=== PATIENT | female | born 1990 | race Caucasian/White ===

== ENCOUNTER 2016-02-24 13:26 | Emergency (ER) | payer OTHER ==
[~2016-02-24] VITALS: Ht 152.4 cm; Wt 64.5 kg
[~2016-02-24 13:26] MED LIST: ALBU8.5H3 INH; BECL8.7A INH; BUTA1CAP39 PO; CETI10CA PO; GUAI473L22 PO; IBUP-1542 PO; ZOF8 PO
[2016-02-24 13:31] VITALS: Ht 152.4 cm; Wt 64.5 kg
[2016-02-24 14:17] LABS: URINE BLOOD (Dip) POC 2+ (NEGATIVE)
[2016-02-24] MEDS ORDERED: CEPH-443 PO (14:40)
[2016-02-24] MEDS ORDERED: PHEN-538 PO (14:40)
--- NOTE | 2016-02-24 14:44 | ERD ---
ER Documentation Chief Complaint Date/Time DATE: 02/24/16 TIME: 14:43 Chief Complaint painful urination started yesterday afternoon HPI This 25-year-old female presents with dysuria and mild suprapubic pain since yesterday. She denies any fevers, or vomiting. She has mild nausea. Denies any flank pain. She has a history of UTI and it feels similar. She has not been treated recently for UTI. Denies vaginal discharge or right or left pelvic pain. ROS All systems reviewed and are negative except as per history of present illness. Medications Home Meds Active Scripts Phenazopyridine Hcl* (Pyridium*) 200 Mg Tab, 200 MG PO TID Y for URINARY PAIN, # 6 TAB Prov:NATE VAZQUEZ MD 02/24/16 Cephalexin* (Keflex*) 500 Mg Capsule, 500 MG PO QID for 5 Days, CAP Prov:NATE VAZQUEZ MD 02/24/16 Ibuprofen* (Motrin*) 600 Mg Tab, 600 MG PO Q6H Y for PAIN AND OR ELEVATED TEMP, #30 TAB Prov:SUSANA DEJESUS NP 11/10/15 Cetirizine Hcl* (Zyrtec*) 10 Mg Capsule, 10 MG PO DAILY, #30 TAB.CHEW Prov:SUSANA DEJESUS NP 11/10/15 Guaifenesin-Codeine Phosphate* (Guaifenesin* AC Cough Syrup) 473 Ml Liquid, 5 ML PO Q4H Y for COUGH, #60 ML Prov:SUSANA DEJESUS NP 11/10/15 Albuterol Sulfate* (Proair HFA*) 8.5 Gm Hfa.aer.ad, 2 PUFF INH Q4H Y for WHEEZING AND SOB, #1 INHALER Prov:SUSANA DEJESUS NP 11/10/15 Beclomethasone Dip* (Qvar 40*) 7.3 Gm Inha, 2 PUFF INH BID, #1 INHALER Prov:SUSANA DEJESUS NP 11/10/15 Ondansetron Hcl* (Zofran* ODT) 8 mg -ODT Tab.disper, 8 MG PO Q6 Y for NAUSEA AND /OR VOMITING, #10 TAB Prov:EMMANUEL COLIN MD 09/08/14 Yaukodofuptht-Nfoetcfqop-Qkqoyvmd-Codeine* (Fioricet w/ Codeine*) [id number]- 30MG Capsule, 1 CAP PO Q6H Y for PAIN LEVEL 1-5, #10 CAP Prov:EMMANUEL COLIN MD 09/08/14 Allergies Allergies: Coded Allergies: No Known Allergy (Unverified , 10/10/13) PMhx/Soc History of Surgery: No Anesthesia Reaction: No Hx Neurological Disorder: No Hx Respiratory Disorders: Yes (asthma) Hx Cardiac Disorders: No Hx Psychiatric Problems: No Hx Miscellaneous Medical Probl: Yes (ovarian cyst) Hx Alcohol Use: No Hx Substance Use: Yes (marijuana) Hx Tobacco Use: Yes Smoking Status: Current every day smoker Physical Exam Vitals Vital Signs Date Time Temp Pulse Resp B/P Pulse Ox O2 Delivery O2 Flow Rate FiO2 02/24/16 13:31 98.3 74 19 116/56 96 Physical Exam Const: [] Head: Atraumatic Eyes: Normal Conjunctiva ENT: Normal External Ears, Nose and Mouth. Neck: Full range of motion..~ No meningismus. Resp: Clear to auscultation bilaterally Cardio: Regular rate and rhythm, no murmurs Abd: Soft, non tender, non distended. Normal bowel sounds Skin: No petechiae or rashes Back: No midline or flank tenderness Ext: No cyanosis, or edema Neur: Awake and alert Psych: Normal Mood and Affect Results 24 hrs Laboratory Tests Test 02/24/16 14:17 Bedside Urine Blood 2+ Bedside Urine Glucose (UA) Negative Bedside Urine Ketones (LAB) Negative Bedside Urine Leukocyte Esterase (L Trace Bedside Urine Nitrite (LAB) Negative Bedside Urine Protein (LAB) 1+ Bedside Urine pH (LAB) 8.5 Current Medications Medications (Trade) Dose Ordered Sig/Meghna Route PRN Reason Start Time Stop Time Status Last Admin Dose Admin Cephalexin (Keflex) 500 mg ONCE ONCE PO 02/24/16 15:00 02/24/16 15:01 Phenazopyridine HCl (Pyridium) 200 mg ONCE ONCE PO 02/24/16 15:00 02/24/16 15:01 Procedures/MDM Urine shows positive leukocytes and blood. HCG is negative. Patient has signs and symptoms of acute cystitis without signs or symptoms to suggest sepsis, pyelonephritis, PID, acute abdomen. She was given Keflex 500 mg here in the ED as well as Pyridium and will be treated with Keflex, Pyridium and instructions for clear fluids at home. The patient was stable with no new complaints during the ER course. Clinically, there is no current evidence to suggest meningitis, sepsis, acute abdomen, pneumonia, acute coronary syndrome, pulmonary embolism, or any other emergent condition appearing to require further evaluation or hospitalization. The patient should certainly return for any new or worsening symptoms per the aftercare instructions. They should otherwise follow-up with her primary care doctor for reevaluation this week. Departure Diagnosis: Primary Impression: UTI (urinary tract infection) Urinary tract infection type: acute cystitis Hematuria presence: without hematuria Qualified Code: N30.00 - Acute cystitis without hematuria Condition: Stable Patient Instructions: Understanding Urinary Tract Infections (UTIs) Additional Instructions: Urine shows infection. Recheck for new or worsening symptoms or primary care doctor. Drink plenty of fluids at home. NATE VAZQUEZ MD Feb 24, 2016 14:44
[2016-02-24] MEDS ORDERED: PHENAZOPYRIDINE 100 MG TAB PO ONE (15:00)
[2016-02-24] MEDS ORDERED: CEPHALEXIN 500 MG CAP PO ONE (15:00)
== END 2016-02-24 15:01 | disposition home or self-care (01) ==
LOC: FTE 13:26
DX: N30.00 Acute cystitis without hematuria (principal); J45.909 Unspecified asthma, uncomplicated; F17.210 Nicotine dependence, cigarettes, uncomplicated
CPT/HCPCS: 81003; Z7502; Z7610; 99283

== ENCOUNTER 2016-02-29 15:45 | Emergency (ER) | payer SELFPAY ==
[~2016-02-29] VITALS: Ht 152.4 cm; Wt 66.5 kg
[~2016-02-29 15:45] MED LIST changes: +CEPH-443 PO; +PHEN-538 PO
[2016-02-29 15:59] VITALS: Ht 152.4 cm; Wt 66.5 kg
== END 2016-02-29 17:23 | disposition left against medical advice (07) ==
LOC: FTE 15:45
DX: Z53.21 Procedure and treatment not carried out due to patient leaving prior to being seen by health care provider (principal)

== ENCOUNTER 2016-06-16 08:41 | Emergency (ER) | payer OTHER ==
[~2016-06-16] VITALS: Ht 157.5 cm; Wt 78.0 kg
[2016-06-16 08:45] VITALS: Ht 157.5 cm; Wt 78.0 kg
[2016-06-16] MEDS ORDERED: ONDANSETRON (ODT) 4 MG TAB ODT STA (09:35)
[2016-06-16] MEDS ORDERED: FAMOTIDINE 20 MG TAB PO STA (09:35)
[2016-06-16] MEDS ORDERED: LIDOCAINE/MYLANTA 40 ML BTL PO STA (09:35)
[2016-06-16] MEDS ORDERED: ONDA4TAB14 PO (09:57)
[2016-06-16] MEDS ORDERED: OMEP20CA16 PO (09:57)
[2016-06-16] MEDS ORDERED: FAMO-18 PO (09:57)
[2016-06-16 10:20] LABS: URINE BLOOD (Dip) POC 2+ (NEGATIVE)
--- NOTE | 2016-06-16 10:20 | ERD ---
ER Documentation Chief Complaint Date/Time DATE: 06/16/16 TIME: 10:17 Chief Complaint ap with nausea x 2-3 days HPI This is a 25-year-old female with history of asthma presenting to the emergency department complaining of epigastric pain since this morning. Patient states that she was at work and she kept having nausea and episodes of regurgitation. She denies any actual vomiting. She denies any diarrhea, urinary symptoms, fever, hematemesis. Patient states that she has not taken any medications for this. She states that she was told that she does have a history of gastritis. Patient states that she is currently on her menstrual period ROS All systems reviewed and are negative except as per history of present illness. Medications Home Meds Active Scripts Famotidine* (Pepcid*) 20 Mg Tablet, 20 MG PO QHS, #20 TAB Prov:JOIE NG PA-C 06/16/16 Omeprazole* (Omeprazole*) 20 Mg Capsule.dr, 20 MG PO DAILY, #10 Prov:JOIE NG PA-C 06/16/16 Ondansetron (Ondansetron Odt) 4 Mg Tab.rapdis, 4 MG PO Q6H Y for NAUSEA AND/OR VOMITING, #14 TAB Prov:JOIE NG PA-C 06/16/16 Phenazopyridine Hcl* (Pyridium*) 200 Mg Tab, 200 MG PO TID Y for URINARY PAIN, # 6 TAB Prov:NATE VAZQUEZ MD 02/24/16 Cephalexin* (Keflex*) 500 Mg Capsule, 500 MG PO QID for 5 Days, CAP Prov:NATE VAZQUEZ MD 02/24/16 Ibuprofen* (Motrin*) 600 Mg Tab, 600 MG PO Q6H Y for PAIN AND OR ELEVATED TEMP, #30 TAB Prov:SUSANA DEJESUS NP 11/10/15 Cetirizine Hcl* (Zyrtec*) 10 Mg Capsule, 10 MG PO DAILY, #30 TAB.CHEW Prov:SUSANA DEJESUS NP 11/10/15 Guaifenesin-Codeine Phosphate* (Guaifenesin* AC Cough Syrup) 473 Ml Liquid, 5 ML PO Q4H Y for COUGH, #60 ML Prov:SUSANA DEJESUS NP 11/10/15 Albuterol Sulfate* (Proair HFA*) 8.5 Gm Hfa.aer.ad, 2 PUFF INH Q4H Y for WHEEZING AND SOB, #1 INHALER Prov:SUSANA DEJESUS NP 11/10/15 Beclomethasone Dip* (Qvar 40*) 7.3 Gm Inha, 2 PUFF INH BID, #1 INHALER Prov:SUSANA DEJESUS NP 11/10/15 Ondansetron Hcl* (Zofran* ODT) 8 mg -ODT Tab.disper, 8 MG PO Q6 Y for NAUSEA AND /OR VOMITING, #10 TAB Prov:EMMANUEL COLIN MD 09/08/14 Mjhliubpiknyo-Sxpzttmufa-Cqjvvcrj-Codeine* (Fioricet w/ Codeine*) [id number]- 30MG Capsule, 1 CAP PO Q6H Y for PAIN LEVEL 1-5, #10 CAP Prov:EMMANUEL COLIN MD 09/08/14 Allergies Allergies: Coded Allergies: No Known Allergy (Unverified , 10/10/13) PMhx/Soc Medical and Surgical Hx: pt denies Medical Hx History of Surgery: No Anesthesia Reaction: No Hx Neurological Disorder: No Hx Respiratory Disorders: Yes (asthma) Hx Cardiac Disorders: No Hx Psychiatric Problems: No Hx Miscellaneous Medical Probl: Yes (ovarian cyst) Hx Alcohol Use: No Hx Substance Use: Yes (marijuana) Hx Tobacco Use: Yes Smoking Status: Current every day smoker Physical Exam Vitals Vital Signs Date Time Temp Pulse Resp B/P Pulse Ox O2 Delivery O2 Flow Rate FiO2 06/16/16 08:45 97.8 60 18 128/53 99 Physical Exam GENERAL: well-developed/well-nourished, in no apparent distress, non-toxic appearing HENT: NC/AT, moist mucous membranes EYES: Conjunctiva normal NECK: Supple, no lymphadenopathy PULM: CTA bilaterally, no rales, rhonchi, or wheezing heard CV: Normal S1S2, RRR, good capillary refill GI: Soft, non-distended, mild tender to palpation epigastric Normal bowel sounds, no masses or organomegaly felt on exam No gross peritonitis, no bruits Negative Rovsing, negative Gómez, negative McBurney's point, Negative CVAT BACK: No masses EXT: No clubbing, cyanosis, or edema NEURO: Alert and Orientated SKIN: Intact, normal turgor PSYCH: Normal mood and mentation Results 24 hrs Laboratory Tests Test 06/16/16 10:22 Bedside Urine pH (LAB) 7.0 Bedside Urine Protein (LAB) Negative Bedside Urine Glucose (UA) Negative Bedside Urine Ketones (LAB) Negative Bedside Urine Blood 2+ Bedside Urine Nitrite (LAB) Negative Bedside Urine Leukocyte Esterase (L Negative Current Medications Medications (Trade) Dose Ordered Sig/Meghna Route PRN Reason Start Time Stop Time Status Last Admin Dose Admin Miscellaneous Medication (Gi Cocktail (2)) 40 ml ONCE STAT PO 06/16/16 09:35 06/16/16 09:37 DC 06/16/16 10:21 Ondansetron HCl (Zofran Odt) 8 mg ONCE STAT ODT 06/16/16 09:35 06/16/16 09:37 DC 06/16/16 10:21 Famotidine (Pepcid) 20 mg ONCE STAT PO 06/16/16 09:35 06/16/16 09:37 DC 06/16/16 10:21 Acetaminophen/ Hydrocodone Bitart ([place] (5/325)) 1 tab ONCE STAT PO 06/16/16 10:36 06/16/16 10:38 DC Procedures/MDM This is a 25-year-old female with a history of asthma and gastritis presenting to the emergency department complaining of epigastric pain with regurgitation since this morning. This is likely acid reflux or gastritis. Other differentials that I have considered are cholelithiasis, pancreatitis, gastroenteritis, versus other acute cardiopulmonary conditions. Patient appears well, she does not seem to be in any distress. She is afebrile and has stable vital signs. In the ED patient was given a GI cocktail, Zofran, and Pepcid. I have reassessed her and she is significant is better. Patient is suitable to follow-up with her primary care physician. A prescription for Zofran, Pepcid and Prilosec was given. I discussed with her to return to the ER for any worsening signs or symptoms. Patient understands and agrees with this plan. Departure Diagnosis: Primary Impression: Epigastric pain Additional Impression: Nausea Condition: Stable Patient Instructions: Treating Gastritis, Understanding Gastritis, Nausea, Gerd (Adult), Gastritis (Adult), Epigastric Pain (Uncertain Cause) Referrals: [facility] YOU HAVE RECEIVED A MEDICAL SCREENING EXAM AND THE RESULTS INDICATE THAT YOU DO NOT HAVE A CONDITION THAT REQUIRES URGENT TREATMENT IN THE EMERGENCY DEPARTMENT. FURTHER EVALUATION AND TREATMENT OF YOUR CONDITION CAN WAIT UNTIL YOU ARE SEEN IN YOUR DOCTORS OFFICE WITHIN THE NEXT 1-2 DAYS. IT IS YOUR RESPONSIBILITY TO MAKE AN APPOINTMENT FOR FOLOW-UP CARE. IF YOU HAVE A PRIMARY DOCTOR --you should call your primary doctor and schedule an appointment IF YOU DO NOT HAVE A PRIMARY DOCTOR YOU CAN CALL OUR PHYSICIAN REFERRAL HOTLINE AT IF YOU CAN NOT AFFORD TO SEE A PHYSICIAN YOU CAN CHOSE FROM THE FOLLOWING [facility] [id number] [facility] [address] [facility] [address] [facility] [address] [facility] [address] [facility] [facility]. [address] Additional Instructions: FOLLOW UP WITH YOUR PRIMARY CARE PHYSICIAN TOMORROW. Return to this facility if you are not improving as expected. Take all medicines as directed. Return to this facility if you are not improving as expected. JOIE NG PA-C Jun 16, 2016 10:20
[2016-06-16] MEDS ORDERED: HYDROCODONE/APAP (5/325) TAB PO STA (10:36)
== END 2016-06-16 11:43 | disposition home or self-care (01) ==
LOC: FTE 08:41
DX: R10.13 Epigastric pain (principal); R11.0 Nausea; J45.909 Unspecified asthma, uncomplicated; F17.210 Nicotine dependence, cigarettes, uncomplicated
CPT/HCPCS: 81003; Z7610; 99283

== ENCOUNTER 2016-06-21 13:55 | Emergency (ER) | payer MEDICAID, OTHER ==
[~2016-06-21] VITALS: Ht 157.5 cm; Wt 63.0 kg
[~2016-06-21 13:55] MED LIST changes: +FAMO-18 PO; +OMEP20CA16 PO; +ONDA4TAB14 PO
[2016-06-21 14:07] VITALS: Ht 157.5 cm; Wt 63.0 kg
[2016-06-21] MEDS ORDERED: HYDR25SU23 PR (16:01)
[2016-06-21] MEDS ORDERED: POLY17PO6 PO (16:01)
--- NOTE | 2016-06-21 16:04 | ERD ---
ER Documentation Chief Complaint Date/Time DATE: 06/21/16 TIME: 16:03 Chief Complaint rectal bleed yesterday , constipation , hard stools HPI This is a 25-year-old female complains that she has been constipated for the past for 5 days. She says she is straining hard to push her stool out with some severe anal pain as the stool passes. She is passing small balls of stool. She says it feels like her anus is tearing. She says after she has a bowel movement a few small balls she will have some bright red blood dripping in the toilet. He has no abdominal pain ROS All systems reviewed and are negative except as per history of present illness. Medications Home Meds Active Scripts Polyethylene Glycol* (Miralax*) 17 Gm Powd.pack, 17 GM PO DAILY, #7 Prov:HUGO WATSON DO 06/21/16 Hydrocortisone Acetate (Anusol-Hc) 25 Mg Supp.rect, 1 SUPP NV QHS Y for HEMORROID PAIN/ITCHING, #12 SUPP.RECT Prov:HUGO WATSON DO 06/21/16 Famotidine* (Pepcid*) 20 Mg Tablet, 20 MG PO QHS, #20 TAB Prov:JOIE NG PA-C 06/16/16 Omeprazole* (Omeprazole*) 20 Mg Capsule.dr, 20 MG PO DAILY, #10 Prov:JOIE NG PA-C 06/16/16 Ondansetron (Ondansetron Odt) 4 Mg Tab.rapdis, 4 MG PO Q6H Y for NAUSEA AND/OR VOMITING, #14 TAB Prov:JOIE NG PA-C 06/16/16 Phenazopyridine Hcl* (Pyridium*) 200 Mg Tab, 200 MG PO TID Y for URINARY PAIN, # 6 TAB Prov:NATE VAZQUEZ MD 02/24/16 Cephalexin* (Keflex*) 500 Mg Capsule, 500 MG PO QID for 5 Days, CAP Prov:NATE VAZQUEZ MD 02/24/16 Ibuprofen* (Motrin*) 600 Mg Tab, 600 MG PO Q6H Y for PAIN AND OR ELEVATED TEMP, #30 TAB Prov:SUSANA DEJESUS NP 11/10/15 Cetirizine Hcl* (Zyrtec*) 10 Mg Capsule, 10 MG PO DAILY, #30 TAB.CHEW Prov:SUSANA DEJESUS NP 11/10/15 Guaifenesin-Codeine Phosphate* (Guaifenesin* AC Cough Syrup) 473 Ml Liquid, 5 ML PO Q4H Y for COUGH, #60 ML Prov:SUSANA DEJESUS NP 11/10/15 Albuterol Sulfate* (Proair HFA*) 8.5 Gm Hfa.aer.ad, 2 PUFF INH Q4H Y for WHEEZING AND SOB, #1 INHALER Prov:SUSANA DEJESUS NP 11/10/15 Beclomethasone Dip* (Qvar 40*) 7.3 Gm Inha, 2 PUFF INH BID, #1 INHALER Prov:SUSANA DEJESUS NP 11/10/15 Ondansetron Hcl* (Zofran* ODT) 8 mg -ODT Tab.disper, 8 MG PO Q6 Y for NAUSEA AND /OR VOMITING, #10 TAB Prov:EMMANUEL COLIN MD 09/08/14 Mdrhxkniekzrb-Slhqfxubex-Smewswfs-Codeine* (Fioricet w/ Codeine*) [id number]- 30MG Capsule, 1 CAP PO Q6H Y for PAIN LEVEL 1-5, #10 CAP Prov:EMMANUEL COLIN MD 09/08/14 Allergies Allergies: Coded Allergies: No Known Allergy (Unverified , 06/21/16) PMhx/Soc Medical and Surgical Hx: pt denies Surgical Hx History of Surgery: No Anesthesia Reaction: No Hx Neurological Disorder: No Hx Respiratory Disorders: Yes (asthma) Hx Cardiac Disorders: No Hx Psychiatric Problems: No Hx Miscellaneous Medical Probl: Yes (ovarian cyst) Hx Alcohol Use: No Hx Substance Use: Yes (marijuana) Hx Tobacco Use: Yes Smoking Status: Current every day smoker FmHx Family History: No coronary disease Physical Exam Vitals Vital Signs Date Time Temp Pulse Resp B/P Pulse Ox O2 Delivery O2 Flow Rate FiO2 06/21/16 14:07 98.1 70 18 117/60 98 Physical Exam Const: Well-developed, well-nourished Head: Atraumatic, normocephalic Eyes: Normal Conjunctiva, PERRLA, EOMI, normal sclera, no nystagmus ENT: Normal External Ears, Nose and Mouth, moist mucus membranes. Neck: Full range of motion. No meningismus, no lymphadenopathy. Resp: Clear to auscultation bilaterally, no wheezing, rhonchi, rales Cardio: Regular rate and rhythm, no murmurs, S1 S2 present Abd: Soft, non tender x 4, non distended. 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, patient has an anal fissure at the 3 o'clock position Skin: No petechiae or rashes, no ecchymosis , no maculopapular rash Back: No midline or flank tenderness Ext: No cyanosis, or edema, FROM x 4, normal inspection, neurovascularly intact x 4 Neur: Awake and alert, STR 5/5 x 4, sensation intact x 4, no focal findings, cerebellum intact Psych: Normal Mood and Affect Departure Diagnosis: Primary Impression: Anal fissure Additional Impression: Constipation Constipation type: unspecified constipation type Qualified Code: K59.00 - Constipation, unspecified constipation type Condition: Stable Patient Instructions: Anal Fissure (Child), Constipation (Adult) Additional Instructions: can try over the counter magnesium citrate solution for constipation HUGO WATSON DO June 21, 2016 16:04
== END 2016-06-21 17:24 | disposition home or self-care (01) ==
LOC: FTE 13:55
DX: K60.2 Anal fissure, unspecified (principal); K59.00 Constipation, unspecified; J45.909 Unspecified asthma, uncomplicated; F17.210 Nicotine dependence, cigarettes, uncomplicated
CPT/HCPCS: 99283

== ENCOUNTER 2017-03-07 16:16 | Emergency (ER) | END 2017-03-07 19:25 | disposition home or self-care (01) ==

== ENCOUNTER 2017-03-29 18:37 | Emergency (ER) | END 2017-03-29 21:14 | disposition home or self-care (01) ==